=== PATIENT | female | born 1940 | race Caucasian/White ===

== ENCOUNTER 2017-06-10 10:56 | Emergency (ER) | payer MEDICARE ==
[2017-06-10 11:53] LABS: #Basophils 0.1 thou/uL (0.0-0.2); #Eosinphils 0.3 thou/uL (0.0-0.7); #Lymphocytes 1.6 thou/uL (1.20-3.40); #Monocytes 0.8 thou/uL (0.11-0.59); #Neutrophils 5.6 thou/uL (1.40-6.50); %Basophils 0.8 % (0.0-1.0); %Eosinophils 3.5 % (0.0-10.0); %Lymphocytes 19.1 % (21.0-51.0); %Monocytes 9.9 % (0.0-10.0); Hematocrit 38.8 % (36.0-47.0); Mean Platelet Volume 7.5 fL (7.4-10.4); Red Blood Cell (RBC) Count 4.05 mill/uL (4.20-5.40); White Blood Cell (WBC) Count 8.4 thou/uL (4.8-10.8)
[2017-06-10 12:06] LABS: ALT (SGPT) 22 U/L (8-55); AST (SGOT) 28 U/L (5-34); Alkaline Phosphatase 49 U/L (40-150); Anion Gap 15 mmol/L (10-20); BUN (Urea Nitrogen) 19 mg/dL (9.8-20.1); Bilirubin, Total 0.4 mg/dL (0.2-1.2); Calc. Creatinine Clearance 0 mL/min (70-130); Calcium 9.5 mg/dL (7.8-10.44); Carbon Dioxide 25 mmol/L (23-31); Chloride 108 mmol/L (98-107); Estimated GFR-MDRD 68; Globulin 3.3 g/dL (2.4-3.5); Protein, Total 7.1 g/dL (6.0-8.3)
[2017-06-10 12:07] LABS: Troponin I Less than 0.010 ng/mL (< 0.028)
--- NOTE | 2017-06-10 13:02 | RAD ---
PORTABLE AP CHEST: Date: 06/10/17 HISTORY: Shortness of breath and left-sided back pain for 1 week. FINDINGS: Compared to study on 01/09/17. There has been interval resolution of dense area of consolidation in the left upper lobe, likely rela alfredito to resolution of pneumonia. However, there is persistent mild increased interstitial density seen throughout the lungs bilaterally, which is similar to the prior exam. However, the interstitial dens ities are slightly more prominent than on the study of 09/15/16. Findings could be related to mild ch ronic lung changes, but element of mild pulmonary edema or infectious process cannot be entirely excl uded. No pleural effusion or area of consolidation is seen on this exam. Cardiac silhouette is magnif ied by projection. There is osteopenia. No other interval change. IMPRESSION: Mild increased interstitial opacities bilaterally, which could be related to chronic interstitial lashanda g changes. However, infectious process or pulmonary edema is a possibility. POS: [facility]
== END 2017-06-10 13:13 | disposition home or self-care (01) ==
LOC: SCSER 10:56
DX: J06.9 Acute upper respiratory infection, unspecified (principal); Z79.899 Other long term (current) drug therapy
CPT/HCPCS: 36415; 71010; 80053; 82553; 84484; 85025; 93005

== ENCOUNTER 2017-09-15 13:46 | Outpatient (CLI) | payer MEDICARE, OTHER ==
--- NOTE | 2017-09-22 14:54 | PFT ---
PATIENT HISTORY: HEIGHT: 66 IN WEIGHT: 166 SMOKER: NEVER HOW LONG: PACKS PER DAY PRODUCTIVE COUGH: LUNG DISEASE: PHYSICIAN INTERPRETATION FINAL REPORT: Energy Professional comments patient and good effort and cooperation FVC 1.97 (72%), FEV1 1.75 (91%), FEV1/FVC 0.88, total expiratory time 6.38 seconds. TLC 2.74 (58%), RV 0.74 (38%). Diffusion 3.67 (21%). There is a mild reduction to the FVC. The FEV1 falls within the normal limits. The ratio is suggestive of a restrictive profile. The total lung capacity is moderately impaired. The residual volume is severely impaired. Diffusion capacity is severely reduced. IMPRESSION: Overall, these pulmonary function studies are consistent with mild to moderate restrictive lung disease with a severe reduction in gas exchange. Radiographic correlation for interstitial process should be considered. The is an asymmetric reduction to the diffusion capacity, so a pulmonary vascular process should also be considered. I have no priors available for comparison. Energy Professional: JOSE F Bellperson: JOSE F HALE
== END 2017-09-15 13:47 | disposition home or self-care (01) ==
LOC: CP 13:46
PROVIDERS: ATTEND Internal Medicine Rheumatology
DX: J84.9 Interstitial pulmonary disease, unspecified (principal)
CPT/HCPCS: 94010; 94727; 94729

== ENCOUNTER 2018-03-01 08:59 | Outpatient (CLI) | payer MEDICARE, OTHER | END 2018-03-01 09:00 | disposition home or self-care (01) | LOC: BICMAMMO 08:59 | PROVIDERS: ATTEND Allergy & Immunology | DX: Z13.820 Encounter for screening for osteoporosis (principal); M81.0 Age-related osteoporosis without current pathological fracture | CPT/HCPCS: 77080 ==

== ENCOUNTER 2018-07-31 09:39 | Outpatient (CLI) | payer MEDICARE, OTHER ==
[~2018-07-31 09:39] MED LIST: Iopamidol 370 76% 100 ML VIAL ONE
--- NOTE | 2018-07-31 13:24 | CT ---
CT CHEST PERFORMED WITH INTRAVENOUS CONTRAST ENHANCEMENT: History: Cough and congestion. Comparison: 01-10-17 FINDINGS: There are marked, predominately peripheral interstitial fibrotic lung change. On the previous examination there is a fairly dense pneumonic infiltrate present. There are still lisbet e asymmetric mainly interstitial lung changes in this region, also with bronchiectatic change. I marisela chidi that these residual changes are related to scarring with similar changes of the right upper lobe. It is difficult to exclude some element of superimposed infiltrate. The lower lobes show interstitia l lung changes, more pronounced in the left lower lobe. There is bronchiectatic changes, particularly at the left lower lobe. Again I feel that these changes are mostly chronic in nature. No significant mediastinal or hilar adenopathy. Hypodensity within the left lobe of the liver is stable in appearance. The gallbladder has been remov ed. Right and left adrenal glands are normal. IMPRESSION: Interstitial fibrotic lung change with associated bronchiectasis. I feel that these changes are most likely all chronic in nature. It is difficult to exclude some acute element, particularly in the left upper and lower lung mckinney, given the changes. No definite confluent new infiltrative process seen. POS: [facility]
== END 2018-07-31 09:40 | disposition home or self-care (01) ==
LOC: SCSCT 09:39
PROVIDERS: ATTEND Allergy & Immunology
DX: J84.10 Pulmonary fibrosis, unspecified (principal); J47.9 Bronchiectasis, uncomplicated
CPT/HCPCS: 71260; 82565

== ENCOUNTER 2018-12-20 17:40 | Outpatient (CLI) | payer MEDICARE, OTHER ==
--- NOTE | 2018-12-20 18:41 | RAD ---
TWO VIEWS RIGHT RIBS: 12/20/18 HISTORY: Injured right ribs after a fall. COMPARISON: 11/24/18. FINDINGS: Again noted are increased interstitial opacities involving the visualized lung mckinney bilaterally lik corrina related to chronic interstitial lung changes. There is slightly greater interstitial densities at the right lung base which could be accentuated due to depth of inspiration as this study was tailore d for evaluation of the ribs. However, superimposed acute infectious process or interstitial edema ca nnot be excluded. Vascular calcification seen in the thoracic aorta. Osteopenia is present. There is no evidence of a right sided rib fracture. Surgical clips overlie the right upper quadrant. IMPRESSION: 1. Interstitial opacities bilaterally, likely attributable to chronic interstitial fibrotic lung changes which were also seen on prior chest x-ray. However, interstitial densities do appear mildly more prominent than on the prior exam. This could be a factor of depth of inspiration and technique o f the exam. However, superimposed acute infectious process cannot be entirely excluded. 2. Osteopenia. 3. No right sided rib fracture. POS: [facility]
== END 2018-12-20 17:41 | disposition home or self-care (01) ==
LOC: SCSRAD 17:40
PROVIDERS: ATTEND Family Medicine
DX: W19.XXXA Unspecified fall, initial encounter (principal); R91.8 Other nonspecific abnormal finding of lung field; M85.80 Other specified disorders of bone density and structure, unspecified site

== ENCOUNTER 2018-12-28 14:03 | Outpatient (CLI) | payer OTHER | END 2018-12-28 14:04 | disposition home or self-care (01) | PROVIDERS: ATTEND Internal Medicine Sleep Medicine | DX: J84.9 Interstitial pulmonary disease, unspecified (principal) ==